=== PATIENT | female | born 1955 | race Caucasian/White ===

== ENCOUNTER 2022-06-19 12:15 | Emergency (ER) | payer MEDICARE, MEDICAID ==
[~2022-06-19] VITALS: Ht 165 cm; Wt 180.0 kg
[~2022-06-19 12:15] MED LIST: AGM875T PO; ALPR.5T PO; AMIT50TA3 PO; ASP325TEC PO; BCTR15O EXT; BSC10SU PR; COLON HEALTH; CYCL-97 PO; DCS100C PO; DULO60CA6 PO; FAMO20TA5 PO; FURO20TA4 PO; GBPN300C PO; GBPN600T PO; HYDR-3714 PO; HYDR-3720 PO; HYDR-700 PO; HYDR12.5 PO; HYDR12.56 PO; IBP800T PO; LEVO137T24 PO; LEVO75TA6 PO; METH750T3 PO; MULT-608 PO; MULT1TAB53 PO; MYLANT; NITR-33 PO; NITR100C PO; OMEG1CAP51 PO; OMEP20CA18 PO; OMEP20TA2 PO; PARO20TA57 PO; PHEN37.555 PO; PRM25T PO; PROBIOTIC PO; RANI150T11 PO; RANI150T90 PO; RNT150T PO; TAPE50TA PO; TIZA-186 PO; TIZA4TAB55 PO; TOPI50TA2 PO; TRM50T PO; UBID100C17 PO; mylanta PO
[2022-06-19 12:32] VITALS: BP 122/83
--- NOTE | 2022-06-19 12:35 | ED Lower Extremity ---
General Chief Complaint: Lower Extremity Stated Complaint: FALL/LEFT ANKLE INJURY Source: patient Exam Limitations: no limitations History of Present Illness Date Seen by Provider: Jun 19, 2022 Time Seen by Provider: 12:35 Initial Comments 66 y/o female presents today with c/o left ankle pain and swelling following a fall yesterday. Pt unable to ambulate on it without using cam walker, so she has been wearing that. Pt states she tripped and twisted the ankle, heard a "pop". She denies any other injuries. Onset: yesterday Severity: moderate Pain/Injury Location: left ankle Method of Injury: fell, twisted Modifying Factors: Improves With Immobilization; Worse With Movement; Improves With Rest Allergies and Home Medications Allergies Coded Allergies: Sulfa (Sulfonamide Antibiotics) (Verified Allergy, Unknown, 07/26/08) Patient Home Medication List Home Medication List Reviewed: Yes Amitriptyline HCl (Amitriptyline HCl) 50 Mg Tablet, 50 MG PO HS, (Reported) Entered as Reported by: FRANKLIN KAMARA on 09/14/151618 Gabapentin (Gabapentin) 600 Mg Tablet, 600 MG PO TID, (Reported) Entered as Reported by: FRANKLIN KAMARA on 09/14/151618 Hydrochlorothiazide (Hydrochlorothiazide) 12.5 Mg Capsule, 12.5 MG PO DAILY, (Reported) Entered as Reported by: FRANKLIN KAMARA on 09/14/151618 Levothyroxine Sodium (Levothyroxine Sodium) 75 Mcg Tablet, 75 MCG PO DAILY, (Reported) Entered as Reported by: FRANKLIN KAMARA on 09/14/151618 Omeprazole (Omeprazole) 20 Mg Capsule.dr, 20 MG PO DAILY, (Reported) Entered as Reported by: FRANKLIN KAMARA on 09/14/151618 Ranitidine HCl (Ranitidine HCl) 150 Mg Tablet, 150 MG PO BID, (Reported) Entered as Reported by: FRANKLIN KAMARA on 09/14/151618 Tizanidine HCl (Tizanidine HCl) 4 Mg Tablet, 4-8 MG PO Q6H PRN for MUSCLE SPASMS, (Reported) Entered as Reported by: FRANKLNI KAMARA on 09/14/151618 Tramadol HCl (Tramadol HCl) 50 Mg Tablet, 50 MG PO Q6H PRN for PAIN, (Reported) Entered as Reported by: FRANKLIN KAMARA on 09/14/15 1619 Review of Systems Constitutional: no symptoms reported Respiratory: no symptoms reported Cardiovascular: no symptoms reported Musculoskeletal: no symptoms reported Skin: no symptoms reported Psychiatric/Neurological: No Symptoms Reported Past Imrsrty-Hjzzvr-Gftvpr Hx Seasonal Allergies Seasonal Allergies: No Past Medical History Section, Hysterectomy, Orthopedic Chronic Bronchitis Hypertension Headaches /Migraines Reproductive Disorders: No Hypothyroidsim Depression Family Medical History No Pertinent Family Hx Physical Exam Vital Signs Vital Signs - First Documented 06/19/22 12:32 Temp 36.7 Pulse 68 Resp 18 B/P (MAP) 122/83 (96) Pulse Ox 97 Capillary Refill : Height, Weight, BMI Height: 5'5.00" Weight: 210lbs. 0.0oz. 95.130117df; 33.78 BMI Method:Stated General Appearance: WD/WN, no apparent distress Neck: non-tender, full range of motion, supple, normal inspection Cardiovascular: normal peripheral pulses, no edema Back: normal inspection, no vertebral tenderness Knees: bilateral knee non-tender, bilateral knee normal inspection, bilateral knee normal range of motion, bilateral knee no evidence of injury Ankles: right ankle non-tender, right ankle normal inspection, right ankle normal range of motion, right ankle no evidence of injury; left ankle bone tenderness, left ankle limited range of motion, left ankle pain, left ankle soft tissue tenderness, left ankle swelling Feet: bilateral foot non-tender, bilateral foot normal inspection, bilateral foot normal range of motion, bilateral foot no evidence of injury Neurologic/Tendon: normal sensation, normal motor functions, normal tendon functions, responds to pain Neurologic/Psychiatric: no motor/sensory deficits, alert, normal mood/affect, oriented x 3 Skin: normal color, warm/dry Progress/Results/Core Measures Results/Orders My Orders Orders - [employer] Ankle, Left, 3 Views (06/19/22 12:36) Vital Signs/I&O 06/19/22 12:32 Temp 36.7 Pulse 68 Resp 18 B/P (MAP) 122/83 (96) Pulse Ox 97 Diagnostic Imaging Diagonstic Imaging: Xray Plain Films/CT/US/NM/MRI: ankle (no acute findings) Departure Impression Primary Impression: Left ankle sprain Disposition: 01 HOME, SELF-CARE Condition: Stable Departure-Patient Inst. Decision time for Depature: 13:18 Referrals: [facility] (PCP/Family) Primary Care Physician Patient Instructions: Ankle Sprain (DC) Add. Discharge Instructions: Elevate as much as possible. Ice for 20 minutes three times daily and as needed. Tylenol and motrin as needed. Wear your brace until pain and swelling have resolved. Follow up with new/worsening concerns All discharge instructions reviewed with patient and/or family. Voiced understanding. [employer] Jun 19, 2022 12:35
--- NOTE | 2022-06-19 12:55 | Diagnostic Imaging Report ---
EXAMINATION: Left ankle 3 views HISTORY: Leg injury COMPARISON: None available. FINDINGS: The alignment is normal. No fracture is seen. The mortise is intact. Talar dome is normal. Joint spaces are normal. IMPRESSION: 1. No fracture. Dictated by: Dictated on workstation # [id number]
== END 2022-06-19 13:31 | disposition home or self-care (01) ==
LOC: EDUNIT# 12:15 → ER 12:17
DX: S93.402A Sprain of unspecified ligament of left ankle, initial encounter (principal); W01.0XXA Fall on same level from slipping, tripping and stumbling without subsequent striking against object, initial encounter; X50.1XXA Overexertion from prolonged static or awkward postures, initial encounter
CPT/HCPCS: 73610